=== PATIENT | female | born 1945 | race Caucasian/White ===

== ENCOUNTER 2020-11-23 19:21 | Emergency (ER) | payer MEDICARE, OTHER ==
[2020-11-23 21:41] LABS: #Neutrophils 11.7 10x3/uL (1.5-8.4); %Basophils 0.2 % (0.0-2.0); %Neutrophils 82.3 % (40.0-75.0); Hemoglobin 12.3 g/dL (12.0-15.5); Mean Corpuscular HGB CONC 33.4 g/dL (32.0-36.0); Mean Corpuscular Hemoglobin 31.5 pg (27.0-33.0); Mean Corpuscular Volume 94.4 fl (81.6-98.3); Mean Platelet Volume 10.3 fl (7.4-10.4); Platelet Count 188 10x3/uL (150-450); RBC Distribution Width 11.8 % (11.5-14.5); White Blood Cell (WBC) Count 14.2 10x3/uL (3.5-10.5)
[2020-11-23 21:53] LABS: ALT (SGPT) 13 U/L (8-55); AST (SGOT) 15 U/L (5-34); Albumin 4.1 g/dL (3.4-4.8); Alkaline Phosphatase 59 U/L (40-110); Anion Gap 15 mmol/L (10-20); BUN (Urea Nitrogen) 22 mg/dL (9.8-20.1); Bilirubin, Total 0.4 mg/dL (0.2-1.2); Calc. Creatinine Clearance 0 mL/min (70-130); Calcium 9.3 mg/dL (7.8-10.44); Carbon Dioxide 26 mmol/L (23-31); Chloride 101 mmol/L (98-107); Globulin 2.9 g/dL (2.4-3.5); Glucose 115 mg/dL (83-110); Lipase 17 U/L (8-78); Potassium 4.5 mmol/L (3.5-5.1); Sodium 137 mmol/L (136-145)
[2020-11-23 21:58] LABS: Bilirubin Neg (Negative); Blood, Urine 250 (Negative); Clarity Clear (Clear); Glucose, Urine (Dipstick) Normal (Negative); Ketone, Urine Negative (Negative); Leukocyte 25 (Negative); Nitrite Negative (Negative); Protein, Urine (Dipstick) 30 mg/dl (Neg-Trace); Specific Gravity, Urine 1.015 (1.002-1.036); Urobilinogen Normal mg/dL (Less than 2)
[2020-11-23 22:22] LABS: Squamous Epithelial 0-3 HPF (0-3); WBC/HPF 0-3 HPF (0-3)
[2020-11-23 22:23] LABS: Bacteria/HPF 1+ HPF (None Seen)
[2020-11-23] MEDS ORDERED: Morphine 4 MG/ML VIAL ONE (22:42)
[2020-11-23] MEDS ORDERED: Ondansetron PF 4 MG/2 ML Vial ONE (22:42)
[2020-11-23] MEDS ORDERED: Ketorolac Tromethamine 30 MG/ML VIAL ONE (22:42)
[2020-11-23] MEDS ORDERED: traMADol HCl 50 MG TAB ONE (23:16)
== END 2020-11-23 23:39 | disposition home or self-care (01) ==
LOC: CSHERS 19:21
DX: N20.1 Calculus of ureter (principal); K21.9 Gastro-esophageal reflux disease without esophagitis; J45.909 Unspecified asthma, uncomplicated; E03.9 Hypothyroidism, unspecified; M06.9 Rheumatoid arthritis, unspecified; G47.30 Sleep apnea, unspecified; K58.9 Irritable bowel syndrome, unspecified; E78.5 Hyperlipidemia, unspecified; M35.00 Sjogren syndrome, unspecified; Z79.82 Long term (current) use of aspirin; Z79.52 Long term (current) use of systemic steroids; Z79.899 Other long term (current) drug therapy
CPT/HCPCS: 74177; 80053; 81003; 81015; 83605; 83690; 85025; 93005; 96374; 96375; J1885; J2270; J2405

== ENCOUNTER 2022-05-22 14:42 | Emergency (ER) | payer OTHER ==
[2022-05-22 16:16] LABS: #Monocytes 0.7 10x3/uL (0.0-1.1); #Neutrophils 4.3 10x3/uL (1.5-8.4); %Basophils 0.6 % (0.0-2.0); %Eosinophils 0.6 % (0.0-6.0); %Lymphocytes 29.7 % (18.0-47.0); %Monocytes 9.9 % (0.0-10.0); %Neutrophils 58.9 % (40.0-75.0); Mean Corpuscular HGB CONC 33.6 g/dL (32.0-36.0); Mean Corpuscular Hemoglobin 31.4 pg (27.0-33.0); Mean Corpuscular Volume 93.5 fl (81.6-98.3); Mean Platelet Volume 9.9 fl (7.4-10.4); Platelet Count 226 10x3/uL (150-450); Red Blood Cell (RBC) Count 3.82 10x6/uL (3.90-5.03); White Blood Cell (WBC) Count 7.2 10x3/uL (3.5-10.5)
[2022-05-22 16:28] LABS: ALT (SGPT) 26 U/L (8-55); AST (SGOT) 29 U/L (5-34); Alkaline Phosphatase 50 U/L (40-110); Anion Gap 11 mmol/L (10-20); BUN (Urea Nitrogen) 29 mg/dL (9.8-20.1); Bilirubin, Total 0.3 mg/dL (0.2-1.2); Calc. Creatinine Clearance 0 mL/min (70-130); Carbon Dioxide 25 mmol/L (23-31); Chloride 106 mmol/L (98-107); Estimated GFR 41; Globulin 2.5 g/dL (2.4-3.5); Glucose 114 mg/dL (83-110); Potassium 3.9 mmol/L (3.5-5.1); Protein, Total 6.5 g/dL (5.8-8.1); Sodium 138 mmol/L (136-145)
[2022-05-22 16:34] LABS: Troponin I Less than 0.010 ng/mL (< 0.028)
[2022-05-22 17:13] LABS: Bilirubin Neg (Negative); Blood, Urine Negative (Negative); Clarity Clear (Clear); Glucose, Urine (Dipstick) Normal (Negative); Ketone, Urine Negative (Negative); Leukocyte 25 (Negative); Nitrite Negative (Negative); Protein, Urine (Dipstick) Negative (Neg-Trace); Urobilinogen Normal mg/dL (Less than 2)
[2022-05-22 17:25] LABS: Bacteria/HPF None Seen HPF (None Seen); RBC/HPF 0-3 HPF (0-3); Squamous Epithelial 0-3 HPF (0-3)
== END 2022-05-22 19:25 | disposition home or self-care (01) ==
LOC: CSHERS 14:42
DX: E86.0 Dehydration (principal); I45.10 Unspecified right bundle-branch block; K21.9 Gastro-esophageal reflux disease without esophagitis; I10 Essential (primary) hypertension; E03.9 Hypothyroidism, unspecified; K58.9 Irritable bowel syndrome, unspecified; G47.30 Sleep apnea, unspecified; E78.5 Hyperlipidemia, unspecified; M06.9 Rheumatoid arthritis, unspecified; Z79.82 Long term (current) use of aspirin; Z79.899 Other long term (current) drug therapy
CPT/HCPCS: 36415; 71045; 80053; 81001; 84484; 85025

== ENCOUNTER 2023-06-03 12:12 | Emergency (ER) | payer OTHER | END 2023-06-03 14:50 | disposition home or self-care (01) | LOC: CSHERS 12:12 | DX: M54.31 Sciatica, right side (principal) ==

== ENCOUNTER 2023-06-16 07:45 | Emergency (ER) | payer OTHER ==
[2023-06-16] MEDS ORDERED: Ketorolac Tromethamine 30 MG/ML VIAL ONE (09:20)
[2023-06-16] MEDS ORDERED: Orphenadrine Citrate 60 MG/2 ML VIAL ONE (09:20)
[2023-06-16] MEDS ORDERED: Dexamethasone 4 MG TAB ONE (09:20)
== END 2023-06-16 10:30 | disposition home or self-care (01) ==
LOC: CSHERS 07:45
DX: M54.41 Lumbago with sciatica, right side (principal); I10 Essential (primary) hypertension
CPT/HCPCS: 96372; 99283; J1885; J2360; J8540

== ENCOUNTER 2025-04-21 12:04 | Outpatient (CLI) | payer OTHER, MEDICAID | END 2025-04-21 12:05 | disposition home or self-care (01) | LOC: CSHCP 12:04 | PROVIDERS: ATTEND Internal Medicine Critical Care Medicine | DX: J44.89 Other specified chronic obstructive pulmonary disease (principal); J45.20 Mild intermittent asthma, uncomplicated | CPT/HCPCS: 94060; 94664; 94726; 94729; 94760 ==